=== PATIENT | male | born 1985 | race Caucasian/White ===

== ENCOUNTER 2016-12-09 09:27 | Emergency (ER) | payer OTHER ==
[~2016-12-09] VITALS: Ht 177.8 cm; Wt 93.2 kg
[2016-12-09 10:34] LABS: MCH 27.6 PG (29.0-34.0); MCHC 32.4 G/DL (30.0-36.0); MCV 85.3 FL (86-99); MEAN PLAT.VOLUME 9.5 uM^3 (9.0-12.4); PLATELET COUNT 244 K/uL (156-360); RBC DIS.WIDTH-SD 40.3 % (39-53); RED BLOOD COUNT 5.39 M/uL (4.00-5.50); WHITE BLOOD COUNT 13.8 K/uL (4.1-10.2)
[2016-12-09 10:44] LABS: CHLORIDE 105 mEq/L (99-109); POTASSIUM 4.1 mEq/L (3.7-5.4); SODIUM 139 mEq/L (136-147)
[2016-12-09 10:46] LABS: GLUCOSE 102 mg/dL (70-99)
[2016-12-09 10:47] LABS: ANION GAP 10 MEQ/L (2-14)
[2016-12-09 10:50] LABS: GFR ESTIMATE (CALCULATED) > 59 mL/min/
[2016-12-09 10:51] LABS: UREA NITROGEN (BUN) 9 mg/dL (9-23)
[2016-12-09 10:53] LABS: LIPASE 34 U/L (1.0-51.0)
[2016-12-09 14:41] VITALS: BP 106/53
== END 2016-12-09 14:51 | disposition home or self-care (01) ==
LOC: EME 09:27
PROVIDERS: Emergency Medicine
DX: K59.00 Constipation, unspecified (principal); F11.21 Opioid dependence, in remission
CPT/HCPCS: 74020; 80048; 83690; 85027; 99281; 99285